=== PATIENT | male | born 1980 | race Caucasian/White ===

== ENCOUNTER 2017-04-04 19:28 | Observation (INO) | payer OTHER ==
[~2017-04-04] VITALS: Ht 193 cm; Wt 120.2 kg
[~2017-04-04 19:28] MED LIST: ADVAIR 500-501 EACH INH; ALBUTEROL2.5 MG/3 M INH/SOL; FLONASE ALLERG9.9 ML INH; FLOVENT DISKU100 MCG INH; FLUTICASONE PRO16 GM NASB; MONTELUKAST SOD10 M1 PO; Nebulizer machine; PREDNISONE20 M1 PO; PROAIR HFA8.5 GM INH; SINGULAIR10 M1 PO; SPIRIVA18 MCG INH; VIBRAMYCIN100 MG PO
--- NOTE | 2017-04-04 19:37 | NUR ---
PT STATES HE WAS DIAGNOSED WITH COPD AND HE CHECKED HIS O2 SAT AND HIS SAT WAS 92%. PT STATES HE HAS BEEN COUGHING UP BLOOD FOR THE PAST COUPLE OF WEEKS. PT STATES HIS CHEST HURTS BAD. PT STATES HE FEELS LIKE HE HAS A THIRD SCROTOM STATES HE HAS A LUMP DOWN THERE.
--- NOTE | 2017-04-04 19:59 | RADIOLOGY REPORT ---
EXAMINATION: CHEST 2 VIEWS CLINICAL INFORMATION: Cough. COMPARISON: 07/19/2016. TECHNIQUE: PA and lateral views of the chest were obtained. FINDINGS: The cardiac silhouette is not enlarged. The mediastinal and hilar contours are unremarkable. There are neither pleural effusions nor pneumothoraces. There are no consolidations. The osseous structures are unremarkable. IMPRESSION: No evidence for acute disease.
--- NOTE | 2017-04-04 21:37 | NUR ---
THIS RN ESTABLISHED IV ACCESS IN LH #20, LABS DRAWN AND SENT (SST, LAV, BLUE, DE LEON )
--- NOTE | 2017-04-04 21:41 | NUR ---
RT PAGED FOR ALBUTEROL TREATMENT
[2017-04-04 21:49] LABS: ABSOLUTE BASOPHIL COUNT 0.1 /CUMM (0.0-0.2); ABSOLUTE EOSINOPHIL COUNT 0.7 /CUMM (0.0-0.7); ABSOLUTE GRANULOCYTE CT 5.8 /CUMM (1.4-6.5); ABSOLUTE LYMPH COUNT 4.1 /CUMM (1.2-3.4); ABSOLUTE MONOCYTE COUNT 0.9 /CUMM (0.10-0.60); BASOPHIL % 1.2 % (0.0-2.0); GRANULOCYTE % 49.8 % (42.2-75.2); HEMATOCRIT 44.6 % (42-52); MEAN CORPUSCULAR HGB 29.3 PG (27.0-31.0); MEAN CORPUSCULAR VOLUME 88.6 FL (80.0-94.0); MEAN PLATELET VOLUME 7.5 FL (7.4-10.4); PLATELET COUNT 293 /CUMM (130-400); RBC DISTRIBUTION WIDTH 14.8 % (11.5-14.5); RED BLOOD CELL CT 5.03 /CUMM (4.70-6.10); WHITE BLOOD CELL COUNT 11.7 /CUMM (4.8-10.8)
--- NOTE | 2017-04-04 22:01 | ED DYSPNEA/ASTHMA COMPLAINT ---
History of Present Illness General Chief Complaint: General Adult Stated Complaint: PT IS HAVING PROBLEM BREATHING ,COUGH UP BLOOD Source: patient, family, old records Exam Limitations: no limitations Vital Signs & Intake/Output Vital Signs & Intake/Output Vital Signs Date Time Temp Pulse Resp B/P B/P Pulse O2 O2 Flow FiO2 Mean Ox Delivery Rate 04/05 1224 96 Room Air 04/05 1220 Room Air 04/05 0734 98.0 54 18 122/80 96 Room Air 04/05 0223 98.2 64 18 132/74 96 04/05 0032 96.8 97 20 106/52 96 Room Air 04/04 2241 97 Room Air 04/04 2238 95 04/04 2146 97.3 73 16 132/67 95 Room Air 04/04 1936 97.7 83 18 134/75 96 Room Air ED Intake and Output 04/05 0000 04/04 1200 Intake Total Output Total Balance Patient 120.202 kg Weight Weight Reported by Patient Measurement Method Allergies Coded Allergies: hydrocodone (From VICODIN) (ITCHY 04/04/17) Reconcile Medications Cyanocobalamin (Vitamin B-12) (Unknown Strength) TABLET (Unknown Dose) PO DAILY SUPPLEMENT (Reported) Triage Note: PT STATES HE WAS DIAGNOSED WITH COPD AND HE CHECKED HIS O2 SAT AND HIS SAT WAS 92%. PT STATES HE HAS BEEN COUGHING UP BLOOD FOR THE PAST COUPLE OF WEEKS. PT STATES HIS CHEST HURTS BAD. PT STATES HE FEELS LIKE HE HAS A THIRD SCROTOM STATES HE HAS A LUMP DOWN THERE. Triage Nurses Notes Reviewed? yes HPI: 37M PMH COPD presenting with hemoptysis. 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 However, yesterday he had a large hemoptysis with clots. He also reports worsening fatigue and shortness of breath lately. He has no been compliant with his COPD medications. Smokes 1/2 PPD. Reports right calf pain a few days ago. Reports mid-sternal chest pain with breathing. Chest pain is non-exertional, non-radiating. No cardiac history. Denies lightheadedness, palpitations, n/v/d, dysphagia, headache. Past History Travel History Traveled to [place] past 21 day No Medical History Any Pertinent Medical History? 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 No Review of Systems Review of Systems Constitutional: Reports: no symptoms. EENTM: Reports: no symptoms. Respiratory: Reports: see HPI. Cardiovascular: Reports: no symptoms. GI: Reports: no symptoms. Genitourinary: Reports: no symptoms. Musculoskeletal: Reports: no symptoms. Skin: Reports: no symptoms. Neurological/Psychological: Reports: no symptoms. Hematologic/Endocrine: Reports: no symptoms. Immunologic/Allergic: Reports: no symptoms. All Other Systems: Reviewed and Negative Physical Exam Physical Exam General Appearance: well developed/nourished, no apparent distress Head: atraumatic, normal appearance Eyes: Bilateral: normal appearance. Ears, Nose, Throat: normal pharynx, normal ENT inspection Neck: normal inspection, supple Respiratory: chest non-tender, wheezing Cardiovascular: regular rate/rhythm, edema Gastrointestinal: soft, non-tender Extremities: normal inspection, normal capillary refill, normal range of motion Core Measures ACS in differential dx? No Severe Sepsis Present: No Septic Shock Present: No Progress Differential Diagnosis: asthma, AMI, altitude sickness, bronchitis, costochondritis, CHF, COPD, musculoskeletal pain, pericarditis, pulmonary embolism, pneumonia, pneumothorax, rib fracture, unstable angina Plan of Care: Orders Procedure Date/time Status Regular Diet 04/05 B Active RT: Evaluation 04/05 1220 Active Change service to 04/05 0655 Active CBC WITHOUT DIFFERENTIAL 04/05 06 Complete BASIC ELECTROLYTES PLUS BUN&CR 04/05 06 Complete STREP PNEUMO URINARY ANTIGEN 04/05 0224 Active URINALYSIS 04/05 0222 Active Vital Signs 04/05 145 Complete Teach/Educate 04/05 145 Active Pain Treatment and Response 04/05 145 Active Nutritional Intake, Monitor 04/05 145 Active Isolation 04/05 145 Active Intake & Output 04/05 145 Complete Patient Care Conference 04/05 145 Active Activity/Ambulation 07/13 0145 Active Pathway - chart 04/05 013 Active House Staff 04/05 013 Active Patient Data 04/05 137 Active Code Status 04/05 013 Active URINE DRUGS OF ABUSE 04/05 011 Active PARTIAL THROMBOPLASTIN TIME 04/05 011 Complete PROTHROMBIN TIME 04/05 011 Complete LOWER RESPIRATORY CULTURE 04/[address] in observation 04/05 0100 Active Patient Data 04/05 0040 Active Vital Signs 04/05 0027 Active Code Status 04/05 0027 Complete THERAPIST ORDERS 04/05 UNK Complete Discharge Patient 04/05 UNK Active VTE Mechanical Prophylaxis 04/05 UNK Active Telemetry/Back Shoe Cutter 04/05 UNK Active Intake & Output 04/04 2137 Active TRC EVALUATION (GEN) 04/04 2129 Complete TROPONIN LEVEL 04/04 2129 Complete COMPREHENSIVE METABOLIC PANEL 04/04 2129 Complete CBC WITHOUT DIFFERENTIAL 04/04 2129 Complete EKG 04/04 2129 Active Current Medications Sig/Zeinab Start time Last Medication Dose Stop Time Status Admin Acetaminophen/ 1 TAB Q6P PRN 04/05 014 CAN Hydrocodone Bitart (Vicodin) Laboratory Tests 04/05/17 0618: Anion Gap 9, Estimated GFR > 60, BUN/Creatinine Ratio 22.5, CBC w Diff NO MAN DIFF REQ, RBC 4.69 L, MCV 89.3, MCH 29.9, RDW 15.1 H, MPV 8.1, Gran % 44.1, Lymphocytes % 37.9, Monocytes % 9.6 H, Eosinophils % 7.8 H, Basophils % 0.6, Absolute Granulocytes 4.4, Absolute Lymphocytes 3.8 H, Absolute Monocytes 1.0 H, Absolute Eosinophils 0.8, Absolute Basophils 0.1, PUBS MCHC 33.4 04/05/17 0230: PT 10.6, INR 1.01, APTT 31 04/04/172137: Anion Gap 9, Estimated GFR > 60, BUN/Creatinine Ratio 25.0, Glucose 78, Calcium 9.4, Total Bilirubin 0.5, AST 33, ALT 33, Alkaline Phosphatase 72, Troponin I < 0.01, Total Protein 6.9, Albumin 4.2, Globulin 2.7, Albumin/Globulin Ratio 1.6, CBC w Diff NO MAN DIFF REQ, RBC 5.03, MCV 88.6, MCH 29.3, RDW 14.8 H, MPV 7.5, Gran % 49.8, Lymphocytes % 35.1, Monocytes % 7.9, Eosinophils % 6.0 H, Basophils % 1.2, Absolute Granulocytes 5.8, Absolute Lymphocytes 4.1 H, Absolute Monocytes 0.9 H, Absolute Eosinophils 0.7, Absolute Basophils 0.1, PUBS MCHC 33.0 Microbiology 04/05 224 URINE ROUT: Streptococcus pneumoniae Antigen (M - COLB 04/05 109 LOWER RESP: Respiratory Culture - COLB 04/05 109 LOWER RESP: Gram Stain - COLB Initial ED EKG: none Departure Departure Disposition: STILL A PATIENT Condition: Stable Clinical Impression Primary Impression: Massive hemoptysis Referrals: PATIENT HAS NO PRIMARY CARE DR (PCP/Family) Departure Forms: Customer Survey General Discharge Information Admission Note Spoke With: MARIO ARTEAGA MD Documentation of Exam: Documentation of any treatments & extenuating circumstances including Concerns Regarding Discharge (functional status, medication knowledge or non-compliance, living conditions, etc.) that warrant an admission rather than observation: MASSIVE HEMOPTYSIS WITH DYSPNEA Critical Care Note Critical Care Note Critical Care Time: 30-74 min
[2017-04-04] MEDS ORDERED: ECHINACEA500 M1 PO (22:12)
[2017-04-04] MEDS ORDERED: VITAMIN B-121000 MC3 PO (22:12)
--- NOTE | 2017-04-04 23:18 | NUR ---
PT SLEEPY, RESPONDS APPROPRIATELY. AT BEDSIDE.
--- NOTE | 2017-04-04 23:41 | CT SCAN REPORT ---
EXAMINATION: CT ANGIOGRAM OF THE CHEST WITH AND WITHOUT CONTRAST (CT PULMONARY ANGIOGRAM FOR PE) CLINICAL INFORMATION: Hemoptysis and pleuritic chest pain. COMPARISON: Chest radiograph from today. TECHNIQUE: Prior to contrast administration, noncontrast localization images were obtained. Subsequently, multidetector volumetric imaging was performed from the thoracic inlet to below the diaphragms following the administration of 95 mL Optiray 320 intravenous contrast. No contrast reaction reported. Sagittal, coronal, and MIP oblique sagittal reformatted images were obtained on the CT workstation, uploaded to PACS, and reviewed. Total exam dose-length product 600 mGy-cm. FINDINGS: QUALITY OF STUDY/CONTRAST BOLUS: Satisfactory PULMONARY ARTERIES: No central or segmental pulmonary emboli. THORACIC AORTA: No aneurysm or dissection. LUNG: The central airways are patent. Minimal secretions are seen dependently in the right mainstem bronchus. Groundglass opacities are noted in the right lower lobe. Minimal left basilar atelectasis. Thin-walled cyst formation at the right base. PLEURA: No pleural effusion or pneumothorax. MEDIASTINUM: The heart is normal in size. No pericardial effusion. No mediastinal or hilar lymphadenopathy. The thyroid gland is unremarkable. No evidence of septal bowing or right heart strain. CHEST WALL/AXILLA: No axillary or internal mammary lymphadenopathy. OSSEOUS STRUCTURES: No acute or suspicious osseous abnormality. UPPER ABDOMEN: Unremarkable. No reflux of contrast into the hepatic veins to suggest elevated right heart pressures. IMPRESSION: 1. No pulmonary embolism. 2. Groundglass opacities at the right lung base. This is a nonspecific finding, and while it may represent subsegmental atelectasis, pneumonia or aspiration is possible. Minimal secretions are seen in the right mainstem bronchus dependently. VTE: negative
--- NOTE | 2017-04-05 00:57 | NUR ---
PT AMBULATED TO BATHROOM WITH STEADY GAIT
--- NOTE | 2017-04-05 01:04 | NUR ---
PT BED ASSIGNMENT [id number]
--- NOTE | 2017-04-05 01:35 | History & Physical ---
ASHLEIGH EL MD 04/05/17 0135: General Information and HPI MD Statement: I have seen and personally examined CHANI LEWIS and documented this H&P. The patient is a 37 year old M who presented with a patient stated chief complaint of coughing up blood. Source of Information: patient Exam Limitations: no limitations History of Present Illness: 37 year old male with past medical history significant for smoking TORY noncompliant with CPAP, and COPD, who presents with a chief complaint of coughing up blood. Patient states that this first began approximately 10 days ago. He says he had never coughed up blood ever before this. He reports three to four episodes of hemoptysis, producing approximately two or three tablespoons of fresh red blood and clots with each occurrence. Patient reports an intense 8 /10 shooting/stabbing pain on the left side of his chest associated with these episodes of hemoptysis, both preceding and during the cough. The chest pain actually resolves with the production of blood. He says he experiences some baseline productive cough with brown sputum and dyspnea on exertion because of his smoking and COPD history. He smokes 1/4 pack per day in the past year but before that he smoked approximately 1/2 pack per day since his teenage years. He manages his respiratory symptoms with Flonase, advair, spiriva, singulair and nebulizer treatments managed by pulmonologists (Jesus/Jason) at [facility] in [place]. He was compliant with these treatments until several month ago because of insurance coverage issues he was unable to refill these medications. He denies any fevers, chills, night sweats, sick contacts, known exposure to tuberculosis, or recent incarceration. He does report his weight has been steady around 265lbs but previously weighed 290 about a year ago but attributes this weight loss to physically demanding job. 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 He reports wearing both a paper mask and respiratory with filters at work. Review of systems is otherwise negative besides one episode of unusual acid reflux two nights ago, treated with milk, lasting eight hours and no unusual oral intake. He also reports Allergies/Medications Allergies: Coded Allergies: hydrocodone (From VICODIN) (ITCHY 04/04/17) Home Med list Cyanocobalamin (Vitamin B-12) (Unknown Strength) TABLET (Unknown Dose) PO DAILY SUPPLEMENT (Reported) Echinacea (Unknown Strength) CAPSULE (Unknown Dose) PO DAILY SUPPLEMENT ( Reported) Compliance With Home Meds: GOOD (ran out of medications) Past History Travel History Traveled to [place] past 21 day No Medical History Neurological: NONE EENT: NONE Cardiovascular: NONE Respiratory: COPD Gastrointestinal: NONE Hepatic: NONE Renal: NONE Musculoskeletal: NONE Psychiatric: NONE Endocrine: NONE Blood Disorders: NONE Cancer(s): NONE 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 Exam & Diagnostic Data Last 24 Hrs of Vital Signs/I&O Vital Signs Date Time Temp Pulse Resp B/P B/P Pulse O2 O2 Flow FiO2 Mean Ox Delivery Rate 04/05 0223 98.2 64 18 132/74 96 04/05 0032 96.8 97 20 106/52 96 Room Air 04/04 2241 97 Room Air 04/04 2238 95 04/04 2146 97.3 73 16 132/67 95 Room Air 04/04 1936 97.7 83 18 134/75 96 Room Air Intake & Output 04/05 0800 04/05 0000 04/04 1600 Intake Total Output Total Balance Patient 265 lb 265 lb Weight Weight Reported by Patient Measurement Method Physical Exam General Appearance Alert, Oriented X3, Cooperative, No Acute Distress Skin No Rashes, No Breakdown Skin Temp/Moisture Exam: Warm/Dry HEENT Atraumatic, PERRLA, EOMI, Mucous Membr. moist/pink Neck Supple, No JVD, +2 Carotid Pulse wo Bruit Cardiovascular Regular Rate, Normal S1, Normal S2, No Murmurs Lungs diffuse expiratory wheeze Abdomen Normal Bowel Sounds, Soft, No Tenderness, No Masses Neurological Normal Gait, Normal Speech, Strength at 5/5 X4 Ext, Normal Tone, Cranial Nerves 3-12 NL Extremities No Cyanosis, No Edema, Normal Pulses Vascular Normal Pulses, Pulses Symmetrical Reproductive (MALE) Normal male genitalia, R epidymal cyst and tenderness on palpation Last 24 Hrs of Labs/[place]: Laboratory Tests 04/05/17 0230: PT Pending, INR Pending, APTT Pending 04/04/17 2138: Anion Gap 9, Estimated GFR > 60, BUN/Creatinine Ratio 25.0, Glucose 78, Calcium 9.4, Total Bilirubin 0.5, AST 33, ALT 33, Alkaline Phosphatase 72, Troponin I < 0.01, Total Protein 6.9, Albumin 4.2, Globulin 2.7, Albumin/Globulin Ratio 1.6, CBC w Diff NO MAN DIFF REQ, RBC 5.03, MCV 88.6, MCH 29.3, RDW 14.8 H, MPV 7.5, Gran % 49.8, Lymphocytes % 35.1, Monocytes % 7.9, Eosinophils % 6.0 H, Basophils % 1.2, Absolute Granulocytes 5.8, Absolute Lymphocytes 4.1 H, Absolute Monocytes 0.9 H, Absolute Eosinophils 0.7, Absolute Basophils 0.1, PUBS MCHC 33.0 Microbiology 04/05 224 URINE ROUT: Streptococcus pneumoniae Antigen (M - ORD 04/05 109 LOWER RESP: Respiratory Culture - ORD 04/05 109 LOWER RESP: Gram Stain - ORD Diagnostic Data EKG Results no st t changes CXR Results cta no pe, ground glass opacity @ RL base, nonspecific Assessment/Plan Assessment: 37 year old male smoker with history of COPD and TORY non compliant with CPAP presents with chief complaint of hemoptysis. 1. Hemoptysis. With smoking and COPD history, bronchitis is most likely cause of bleeding, viral or bacterial pneumonia or other infectious process such as tuberculosis are possible, vascular disease unlikely with no history of bleeding and bruising. CT shows nonspecific groundglass opacities differential includes atelectasis, pneumonia versus aspiration. No Pulmonary Embolism Check sputum culture Course of steroids to reduce inflammation Advice smoking cessation Monitor off antibiotics, will reassess if febrile or hypoxic Consult pulmonology, may need bronchoscopy Place PPD to evaluate for tuberculosis 2. COPD TRC evaluation Albuterol inhaler 5 days of PO Prednisone 40mg Can continue spiriva and singulair 3. Right testicular tenderness: probable epididymal cyst, no hernia on physical exam, tender to palpation Can follow up with urology as an outpatient No need for ultrasound evaluation DVT ppx-mechanical ALPs Regular diet Full code As Ranked By This Provider Problem List: 1. Bronchitis, acute, with bronchospasm 2. COPD (chronic obstructive pulmonary disease) with acute bronchitis 3. Massive hemoptysis Core Measures/Miscellaneous Acute Coronary Syndrome ACS Diagnosis: No Cerebrovascular Accident CVA/TIA Diagnosis: No Congestive Heart Failure CHF Diagnosis: No VTE (View Protocol) VTE Risk Factors: Acute medical illness, Smoking [facility] prophylaxis d/t: No contraindications No VTE Pharm Prophylaxis d/t: Active bleeding VTE Diagnosis: No VTE Type: NONE VTE Confirmed by (Test): NONE Sepsis (View Protocol) Severe Sepsis Present: No Septic Shock Septic Shock Present: No Miscellaneous Documentation Attending Case Discussed With: MARIO ARTEAGA MD Primary Care Physician: PATIENT HAS NO PRIMARY CARE DR Patient sees these Specialists pulmonary Level of Patient Care: Telemetry BONIFACIO OGLESBY 04/05/17 0215: Resident Review Statement Resident Statement: examined this patient, discussed with paid intern, agreed with paid intern Other Findings: Patient is 37-year-old gentleman with past medical history significant for COPD not on any medication for a few months, obstructive sleep apnea noncompliant with CPAP with chief complaint of the episodes of hemoptysis in the past 10 days. Patient endorses that he had cough for almost 1-1/2 weeks and had 3-4 occasions he was coughing up fresh blood with thoughts and last episode was today where he coughed up almost 2-3 tablespoon of fresh blood mixed with clots. In between these episodes he was coughing up brownish yellow phlegm. He also had pleuritic chest pain which is diffuse especially on anterior chest and his sharp/stabbing when he cough and worse with hemoptysis. He denied any fever, chills, night sweats, bleeding gums, hematemesis, hematuria or bleeding through rectum. He denied any recent blood loss but he lost almost 30 pounds the last year which she is blaming on his physical activity at work. He also experiencing shortness of breath but is at baseline due to his underlying COPD. Cause of his insurance issues he is not taking any of his inhalers for past few months. 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 He admits for appearing protective masks and doubly ligated all the time. He denied any sick contacts or recent incarceration or exposure to tuberculosis. None of his colleagues having the same symptoms as well. He denied any history of blood clots, easy bruising or history of bleeding disorders in himself or family. He denied any recent trauma to his chest, any previous episodes. His vital signs at admission were temperature 97.7, pulse 83, respiratory rate 18, blood pressure 134/75 and he saturating 96% on room air. He was also complaining of right-sided scrotal swelling/tenderness for almost a month. Labs were WBC count 11.7, hemoglobin 14.7, hematocrit 44.6, platelet count 293, sodium 138, potassium 4.1, BUNs 20, creatinine 0.8, Chest x-ray negative for any acute pathology but CTA of chest which was negative for PE but showed groundglass opacity at right lung base Physical examination Alert and oriented 3 Head atraumatic Neck supple Chest bilateral expiratory wheezes with reduced air entry Heart S1-S2 normal with no added sounds Abdomen soft with no organomegaly Chest images showed no edema or cyanosis Assessment and plan 37-year-old gentleman, current smoker, history of COPD and obstructive sleep apnea, exposed to chemicals and fumes at work came with chief complaint of 3-4 episodes of hemoptysis in last 10 days with maximum amount of 2-3 tablespoon at a time with elevated white cell count and right basal infiltrate more likely inflammatory in nature. We will admit patient on telemetry floor and will take care for the following problems Problem #1 hemoptysis. He went his smoking history and underlying COPD inflammatory process including bronchitis/pneumonia would be first differential. but TB,VASULITIS, MALIGNANCY could be in differential We will send sputum for culture Will check urinary strep pneumonia antigen -will start him on prednisone 40 mg daily for 5 days. - will hold off antibiotics for now till pulmonary evaluation. He might need bronchscopy. We will check U tox for cocaine will check INR will place PPD #2 history of COPD TRC and nebulizations Problem#3 testicular tendeness and swelling - will consider testicular US and if needed urology or surgical evaluation. Mechanical DVT prophylaxis Regular diet Patient is full code MARIO ARTEAGA 04/05/17 0528: Attending MD Review Statement Attending Statement Attending MD Statement: examined this patient, discuss w/resident/PA/MOBILITY ARCHITECT MANAGER, agreed w/resident/PA/MOBILITY ARCHITECT MANAGER, discussed with family, reviewed EMR data (avail), reviewed images, amended to note Attending Assessment/Plan: CC: Coughing up blood PMH: COPD, TORY Patient states that he had 3 episodes of coughing up krishan blood and clots in last 10 days. Events are isolated not related to excessive coughing, associated with severe sharp chest pain at that particular episode then resolves eventually , nonpleuritic in nature. He has chronic sinusitis secondary to fume exposure at her workplace, but no epistaxis, hematuria, hematemesis or melena or krishan blood in the stool, no easy bruising, joint enlargements. He also denies any worsening of shortness of breath or cough fever or chills recently he gets mild dyspnea on exertion that is related to his COPD. Patient had been having recurrent bronchitis episodes in last 2 years, last saw his archivist political history in September of this year when he could not follow-up because of lack of insurance he had been stretching out his prescription medications so far but ran out of them 15 days back. He also has small swelling on his right testicle since one month. Vitals: Afebrile, pulse 73, RR 18, blood pressure 134/75, saturating well on room air. On exam: A O 3, cooperative, no acute distress, neck supple, JVD normal, no lymphadenopathy, mucosa moist, no focal neurological deficit, no dependent edema , no obvious skin rashes or inflammation CVS: S1-S2, RRR. RS: Clear to auscultate bilaterally. Abdomen: Soft, NT, ND, bowel sounds present. exam: Right testicle has small cyst on superior aspect, no inflammation or tenderness. Labs: WBC 11.7, hemoglobin 14.7, hematocrit 44.6, platelets 293, BM, LFT, troponin P unremarkable, INR 1.01 CXR: No evidence for acute disease CTA chest: 1. No pulmonary embolism. 2. Groundglass opacities at the right lung base. This is a nonspecific finding, and while it may represent subsegmental atelectasis, pneumonia or aspiration is possible. Minimal secretions are seen in the right mainstem bronchus dependently. A and P 37-year-old male with past medical history significant for TORY and COPD secondary to toxic fume exposure at work place, presented in ER for 3 episodes of hemoptysis most recent one today, 2 spoonful of breath with clots. Patient is not currently hypoxic, examination unremarkable including no excessive wheezing or accessory muscles in use. Imaging shows nonspecific groundglass opacity in the right lung base uncertain if this is secondary to hemorrhage. Patient does not have clinical signs and symptoms for pneumonia or aspiration. There is minimum secretion in right main bronchus on dependently, unsure if ongoing bleeding. Thus he would benefit from observation to avoid any further episode. There is also a thin walled cyst formation at right lung base which are of undetermined significance. PE is ruled out as a cause of hemoptysis. Bronchitis is one of the possibility but again he is not wheezing excessively on auscultation. + Hemoptysis + Suspected bronchitis + History of COPD - Place in observation on telemetry for continuous pulse ox - Watch for any further hemoptysis - Morning labs for CBC BMP - Short course of prednisone 50 mg for 5 days - Scheduled and as needed albuterol and ipratropium nebs - Pulmonary consult in a.m. - We hold off testicular ultrasound at this point can get it done outpatient once insurance issues are cleared. - DVT prophylaxis with Alps only - Adequate pain control
[2017-04-05 02:23] VITALS: BP 132/74
[2017-04-05 03:07] LABS: PT 10.6 SEC (9.4-12.5); PTT 31 SEC (25-37)
[2017-04-05 07:34] VITALS: BP 122/80
[2017-04-05 08:54] LABS: ABSOLUTE BASOPHIL COUNT 0.1 /CUMM (0.0-0.2); ABSOLUTE EOSINOPHIL COUNT 0.8 /CUMM (0.0-0.7); ABSOLUTE GRANULOCYTE CT 4.4 /CUMM (1.4-6.5); ABSOLUTE LYMPH COUNT 3.8 /CUMM (1.2-3.4); BASOPHIL % 0.6 % (0.0-2.0); EOSINOPHIL % 7.8 % (0-5); GRANULOCYTE % 44.1 % (42.2-75.2); HEMATOCRIT 41.9 % (42-52); MEAN CORPUSCULAR HGB 29.9 PG (27.0-31.0); MEAN CORPUSCULAR HGB CONC 33.4 G/DL (33.0-37.0); MEAN CORPUSCULAR VOLUME 89.3 FL (80.0-94.0); MEAN PLATELET VOLUME 8.1 FL (7.4-10.4); PLATELET COUNT 241 /CUMM (130-400); RBC DISTRIBUTION WIDTH 15.1 % (11.5-14.5); RED BLOOD CELL CT 4.69 /CUMM (4.70-6.10)
[2017-04-05 10:07] LABS: WHITE BLOOD CELL COUNT 9.9 /CUMM (4.8-10.8)
--- NOTE | 2017-04-05 12:54 | Patient Discharge Instructions ---
Discharge Instructions General Discharge Information You were seen/treated for: Hemoptysis Special Instructions: 1. PLEASE F/U WITH YOUR HOSPITAL PHARMACIST WITHIN 1 WEEK OF DISCHARGE. 2. PLEASE F/U WITH YOUR PCP WITHIN 1 WEEK OF DISCHARGE. 3. PLEASE GO TO [facility] IF ANY ALARMING SYMPTOMS, BLEEDING, SHORTNESS OF BREATH. Diet Recommended Diet: Regular Activity Full Activity/No Limits: Yes ( TOLERATED) Acute Coronary Syndrome Inclusion Criteria At DC or during hospital stay patient has or had the following: ACS DIAGNOSIS No Discharge Core Measures Meds if any: Prescribed or Continued at Discharge Meds if any: NOT Prescribed or Continued at Discharge Congestive Heart Failure Inclusion Criteria At DC or during hospital stay patient has or had the following: CHF DIAGNOSIS No Discharge Core Measures Meds if any: Prescribed or Continued at Discharge Meds if any: NOT Prescribed or Continued at Discharge Cerebrovascular accident Inclusion Criteria At DC or during hospital stay patient has or had the following: CVA/TIA Diagnosis No Discharge Core Measures Meds if any: Prescribed or Continued at Discharge Meds if any: NOT Prescribed or Continued at Discharge Venous thromboembolism Inclusion Criteria VTE Diagnosis No VTE Type NONE VTE Confirmed by (Test) NONE Discharge Core Measures - Per Current guidelines, there needs to be overlap - treatment for the first 5 days of Warfarin therapy. - If discharged on Warfarin prior to 5 days of - overlap therapy, the patient will need to be - assessed for post discharge needs including - *Post discharge parental anticoagulation - *Warfarin and/or parental anticoagulation education - *Follow up date to check INR post discharge At least 5 days overlap therapy as Inpatient No Meds if any: Prescribed or Continued at Discharge Note: Overlap Therapy is Warfarin and Anticoagulant Meds if any: NOT Prescribed or Continued at Discharge
--- NOTE | 2017-04-05 14:55 | PN-Observation ---
BOO PASCUAL MD 04/05/17 1422: Observation Note Observation Note _ I have personally examined CHANI LEWIS. him disposition is uncertain at this time. Before a determination can be made, he requires continued observation for the following reasons [continuous pulse ox monitoring]. Assessment/Plan Assessment: Assessment Patient is a 37-year-old male with a past medical history significant for COPD and obstructive sleep apnea noncompliant with CPAP that presents with the complaint of hemoptysis. * Hemoptysis: due to bronchitis attributed to viral or bacterial pneumonia or TB or vascular disease which is less likely without any other signs such as bleeding and bruising. CTA was negative for pulmonary embolism. Chest x-ray was nonspecific for subsegmental atelectasis pneumonia or aspiration. * COPD: Patient has a long history of smoking half a pack per day since age 13. * Right testicular tenderness * Social: Insurance issues Plan Patient is here in telemetry for continuous pulse ox monitoring he is hemodynamically stable satting 96% on room air. Hemoptysis * CBC shows a WBC of 11.7 overnight currently is 9.9. Hemoglobin is stable at 14.0. * Sputum culture * Urinary strep pneumonia antigen * Urinary toxicology and urinalysis ordered * INR PT and PTT are all normal, BEP is normal. * Vitals, he is not febrile or hypoxic. * Pulmonology consult with Dr. Malagon. * PPD placement to evaluate for tuberculosis. * Patient notes loss of 25 pounds in the last year. Denies sick contacts or recent travel. He does note potential occupational hazardous exposure. COPD * Patient was on Flonase, Advair, Spiriva, Singulair nebulizer treatments managed by pulmonologists at [place] and was compliant until several months ago when he stopped taking them because of lack of insurance coverage. * ERCP evaluation * Prednisone 40 mg by mouth daily Right testicular pain * Tender to palpation most probably an epididymal cyst. * Follow up with urology outpatient DVT prophylaxis mechanical Regular diet Full code Problem List: 1. COPD (chronic obstructive pulmonary disease) with acute bronchitis 2. Massive hemoptysis 3. Bronchitis, acute, with bronchospasm DVT/Prophylaxis: mechanical Discharge Plan Discharge Disposition: home Stable for Discharge? Yes Anticipated Discharge (Day): today Subjective Follow-up For: Hemoptysis Complaints: no complaints Tele-Events Since Last Visit: Normal sinus rhythm rate 60-66, no events Subjective: He was seen and examined bedside. He states that he feels good. He notes some shortness of breath but says that this is his baseline, notes some chest pain on inspiration. Review of Systems Constitutional: Reports: no symptoms. EENTM: Reports: no symptoms. Cardiovascular: Reports: chest pain. Respiratory: Reports: short of breath (at baseline), wheezing. Gastrointestinal: Reports: no symptoms. Genitourinary: Reports: no symptoms. Musculoskeletal: Reports: no symptoms. Skin: Reports: no symptoms. Neurological/Psychological: Reports: no symptoms. Hematologic/Endocrine: Reports: no symptoms. Immunologic/Allergic: Reports: no symptoms. Objective Last 24 Hrs of Vital Signs/I&O Vital Signs Date Time Temp Pulse Resp B/P B/P Pulse O2 O2 Flow FiO2 Mean Ox Delivery Rate 04/05 1224 96 Room Air 04/05 1220 Room Air 04/05 0734 98.0 54 18 122/80 96 Room Air 04/05 0223 98.2 64 18 132/74 96 04/05 0032 96.8 97 20 106/52 96 Room Air 04/04 2241 97 Room Air 04/04 2238 95 04/04 2146 97.3 73 16 132/67 95 Room Air 04/04 1936 97.7 83 18 134/75 96 Room Air Intake & Output 04/05 1600 04/05 0800 04/05 0000 Intake Total 480 Output Total 300 Balance 180 Intake, Oral 480 Output, Urine 300 Patient 265 lb 265 lb Weight Weight Reported by Patient Measurement Method Physical Exam General Appearance: Alert, Oriented X3, Cooperative, No Acute Distress Skin: No Rashes, No Breakdown, No Significant Lesion Skin Temp/Moisture Exam: Warm/Dry Sepsis Skin Exam (color): Normal for Ethnicity HEENT: Atraumatic, EOMI, Mucous Membr. moist/pink Neck: Supple Cardiovascular: Regular Rate, Normal S1, Normal S2, No Murmurs, Gallops, Rubs Lungs: scattered expiratory wheezes throughout Abdomen: Normal Bowel Sounds, Soft, No Tenderness Neurological: Normal Speech Extremities: No Clubbing, No Cyanosis, No Edema, Normal Pulses, No Tenderness/ Swelling Vascular: Normal Pulses Sepsis Peripheral Pulse Location: Radial Sepsis Peripheral Pulse Exam: Normal Current Medications: Current Medications Sig/Zeinab Start time Last Medication Dose Route Stop Time Status Admin Acetaminophen 650 MG Q6P PRN 04/05 0145 DC PO Acetaminophen/ 1 TAB Q6P PRN 04/05 0145 CAN Hydrocodone Bitart PO Albuterol Sulfate 3 ML Q4P PRN 04/05 1230 DCD INH Albuterol Sulfate 3 ML ONCE ONE 04/04 2130 DC 04/04 INH 04/04 2131 2150 Patient Medication 1 ED .STK-MED ONE 04/05 1412 [place] Teaching ED 04/05 1413 Prednisone 40 MG DAILY 04/05 1000 DCD 04/05 PO 1019 Last 24 Hrs of Labs/Mics: Laboratory Tests 04/05/17 0618: Anion Gap 9, Estimated GFR > 60, BUN/Creatinine Ratio 22.5, CBC w Diff NO MAN DIFF REQ, RBC 4.69 L, MCV 89.3, MCH 29.9, RDW 15.1 H, MPV 8.1, Gran % 44.1, Lymphocytes % 37.9, Monocytes % 9.6 H, Eosinophils % 7.8 H, Basophils % 0.6, Absolute Granulocytes 4.4, Absolute Lymphocytes 3.8 H, Absolute Monocytes 1.0 H, Absolute Eosinophils 0.8, Absolute Basophils 0.1, PUBS MCHC 33.4 04/05/17 0230: PT 10.6, INR 1.01, APTT 31 04/04/172137: Anion Gap 9, Estimated GFR > 60, BUN/Creatinine Ratio 25.0, Glucose 78, Calcium 9.4, Total Bilirubin 0.5, AST 33, ALT 33, Alkaline Phosphatase 72, Troponin I < 0.01, Total Protein 6.9, Albumin 4.2, Globulin 2.7, Albumin/Globulin Ratio 1.6, CBC w Diff NO MAN DIFF REQ, RBC 5.03, MCV 88.6, MCH 29.3, RDW 14.8 H, MPV 7.5, Gran % 49.8, Lymphocytes % 35.1, Monocytes % 7.9, Eosinophils % 6.0 H, Basophils % 1.2, Absolute Granulocytes 5.8, Absolute Lymphocytes 4.1 H, Absolute Monocytes 0.9 H, Absolute Eosinophils 0.7, Absolute Basophils 0.1, PUBS MCHC 33.0 Microbiology 04/05 224 URINE ROUT: Streptococcus pneumoniae Antigen (M - COLB 04/05 109 LOWER RESP: Respiratory Culture - COLB 04/05 109 LOWER RESP: Gram Stain - CHERYL CASE MD 04/05/17 2111: Attending Statement Pt examined & info reviewed Yes Agree w/findings/assess/plan Yes Additions/Exceptions to plan The patient was seen and discussed with house staff. No further hemptysis noted. Pulse ox level normal. Documenting Attending CHERYL JULIEN MD
== END 2017-04-05 13:15 ==
LOC: ERH 19:28 → ERHI 04-05 00:27 → 1NO 04-05 01:00 → ENRESERV 04-05 01:01 → 1NO 04-05 01:32
PROVIDERS: Internal Medicine; ADMIT Internal Medicine
DX: R04.2 Hemoptysis (principal); J44.9 Chronic obstructive pulmonary disease, unspecified; F17.200 Nicotine dependence, unspecified, uncomplicated; N50.811 Right testicular pain; G47.33 Obstructive sleep apnea (adult) (pediatric)
CPT/HCPCS: 1255; 1263; 6020; 80307; 82436; 87070; 87450; 93005; 93010; G0378